=== PATIENT | male | born 1930 | race Caucasian/White ===

== ENCOUNTER 2018-03-04 16:18 | Emergency (ER) | payer OTHER, MEDICARE ==
--- NOTE | 2018-03-04 17:16 | EDPHY ---
H & P Stated Complaint: slipped on liquid and fell impacting r hip /fingers of r hand Time Seen by Provider: 03/04/18 17:16 - Personal History Current Tetanus Diphtheria and Acellular Pertussis (TDAP): Yes - Medical/Surgical History Hx Asthma: No Hx Chronic Respiratory Disease: No Hx Diabetes: No Hx Cardiac Disease: No Hx Renal Disease: No Hx Cirrhosis: No Hx Alcoholism: No Hx HIV/AIDS: No Hx Splenectomy or Spleen Trauma: No Other PMH: htn - Social History Smoking Status: Never smoked Constitutional: Initial Vital Signs Temperature (C) 36.5 C 03/04/18 16:31 Heart Rate 78 03/04/18 16:31 Respiratory Rate 18 03/04/18 16:31 Blood Pressure 193/99 H 03/04/18 16:31 O2 Sat (%) 97 03/04/18 16:31 O2 Delivery Mode Room Air Allergies/Adverse Reactions: No Known Allergies Allergy (Verified 03/04/18 16:30) Home Medications: Medication Instructions Recorded Hydrochlorothiazide 0 mg PO DAILY 08/31/12 [Hydrochlorothiazide 25 MG (RX)] Levothyroxine [Synthroid 25 mcg 0 mcg PO DAILY06 08/31/12 (RX)] Medical Decision Making - Diagnostics Imaging Results: Imaging Impressions Pelvis X-Ray 03/04/18 17:23 Impression: 1. Negative AP pelvis radiograph for acute fracture. Imaging: I viewed and interpreted images myself ED Course/Re-evaluation: CHIEF COMPLAINT: Right hip injury HISTORY OF PRESENT ILLNESS: The patient is an 87 y/o male with a history of hypertension complaining of right hip pain secondary to slipping on laundry detergent today and landing on his right hip. Shortly after the fall, he began to have right hip pain and right hand pain. He is able to walk with only mild pain. Denies back pain, urinary or bowel complaints, abdominal pain, chest pain, shortness of breath, fever. REVIEW OF SYSTEMS: A 10 point review of systems was performed and is negative with the exception of the elements mentioned in the history of present illness. PHYSICAL EXAM: HR, BP, O2 Sat, RR. Temp noted General Appearance: Alert, well hydrated, appropriate, and non-toxic appearing. Head: Atraumatic without scalp tenderness or obvious injury Eyes: Pupils equal, round, reactive to light and accommodation, EOMI, no trauma , no injection. Ears: Clear bilaterally, no perforation, normal landmarks Nose: Atraumatic, no rhinorrhea, clear. Throat: There is no erythema or exudates, no lesions, normal tonsils, mucus membranes moist. Neck: Supple, nontender, no lymphadenopathy. Respiratory: No retractions, no distress, no wheezes, and no accessory muscle use. Lungs are clear to auscultation bilaterally. Cardiovascular: Regular rate and rhythm, no murmurs, rubs, or gallops. Bilateral carotid, radial, dorsalis pedis, and posterior tibial pulses intact. Good capillary refill all extremities. Gastrointestinal: Abdomen is soft, nontender, non-distended, no masses, no rebound, no guarding, no peritoneal signs. Musculoskeletal: Mild tenderness at the site of the insertion of the hamstring on the right ischium. Normal active ROM of all extremities, atraumatic. Neurological: Alert, appropriate, and interactive. The patient has normal DTRs and non-focal cranial nerves, motor, sensory, and cerebellar exam. Skin: No rashes, good turgor, no nodules on palpation. Past medical history: Hypertension Past surgical history: Denies Family history: Denies Social history: Lives in [place], single, retired DIAGNOSTICS/PROCEDURES/CRITICAL CARE TIME: Pelvic x-ray: No acute findings DIFFERENTIAL DIAGNOSIS: The differential diagnosis for the patient's knee injury included but was not limited to fracture, ligamentous injury, contusion, muscular strain. MEDICAL DECISION MAKING: The patient is an 87 y/o male with a history of hypertension presenting with right hip pain secondary to slipping on laundry detergent today and landing on his right hip. He does have mild tenderness at the site of the insertion of the hamstring on the right ischium. He has full range of motion without tenderness of his right hand and fingers. Pelvic x-ray ordered. He is declining pain medication at this time. 1750: I reviewed patient's normal x-ray. 175: Reassessed patient and discussed imaging findings. I have advised him to follow up with an orthopedic surgeon for unimproved symptoms. Return precautions provided; patient is comfortable with this plan. Departure - Departure Disposition: Home, Routine, Self-Care Clinical Impression: Contusion of right hip Qualifiers: Encounter type: initial encounter Qualified Code(s): S70.01XA - Contusion of right hip, initial encounter Right hamstring muscle strain Qualifiers: Encounter type: initial encounter Qualified Code(s): S76.311A - Strain of muscle, fascia and tendon of the posterior muscle group at thigh level, right thigh, initial encounter Condition: Good Instructions: Muscle Strain (ED), Hip Pain (ED) Additional Instructions: 1. Take ibuprofen or Tylenol as directed for pain. 2. Follow up with an orthopedic surgeon within one week. 3. Return to the emergency department for worsening pain, swelling, numbness, weakness or other concerns. Referrals: Kasi George MD [Medical Doctor] - As per Instructions Report Scribed for: Og Quezada Report Scribed by: Hailey Mack Date of Report: 03/04/18 Time of Report: 17:17
[2018-03-04 18:02] VITALS: BP 154/98
== END 2018-03-04 18:02 | disposition home or self-care (01) ==
DX: S70.01XA Contusion of right hip, initial encounter (principal); S76.311A Strain of muscle, fascia and tendon of the posterior muscle group at thigh level, right thigh, initial encounter; I10 Essential (primary) hypertension; W01.0XXA Fall on same level from slipping, tripping and stumbling without subsequent striking against object, initial encounter